=== PATIENT | male | born 1990 | race Caucasian/White ===

== ENCOUNTER 2017-11-27 03:52 | Emergency (ER) | payer OTHER ==
[~2017-11-27] VITALS: Ht 172.7 cm; Wt 95.3 kg
[2017-11-27] MEDS ORDERED: IBUPROFEN 400 MG TAB PO ONE (04:00)
[2017-11-27] MEDS ORDERED: IBUPROFEN 400 MG TAB ONE (04:02)
--- NOTE | 2017-11-27 05:44 | Diagnostic Imaging Report ---
FEMUR 2 VIEWS MINIMUM LEFT, PELVIS AP 1-2 VIEWS Comparison: None Clinical history: \S\JUMPED ONTO STRIPPER POLE, FELT POP Findings: No evidence of acute fracture or dislocation. Lucency overlying the visualized tibia on lateral view is likely projectional. Well-corticated ossific fragment is seen in the left lateral thigh soft tissues. Impression: No acute bony abnormality Signed by: Dr Eugenia Royal MD on 11/27/2017 5:41 AM
== END 2017-11-27 05:50 | disposition home or self-care (01) ==
LOC: ER 03:52
DX: M79.652 Pain in left thigh (principal); S76.112A Strain of left quadriceps muscle, fascia and tendon, initial encounter; X50.1XXA Overexertion from prolonged static or awkward postures, initial encounter; Y92.89 Other specified places as the place of occurrence of the external cause
CPT/HCPCS: 72170; 99283

== ENCOUNTER 2021-05-17 07:00 | Emergency (ER) | payer BC, OTHER ==
[~2021-05-17] VITALS: Ht 172.7 cm; Wt 95.3 kg
[2021-05-17] MEDS ORDERED: SODIUM CHLORIDE 0.9% 50ML 50 ML ONE (08:04)
[2021-05-17] MEDS ORDERED: IOPAMIDOL 370 MG/ML 200 ML INFUS..BTL INJ ONE (08:04)
[2021-05-17 08:16] LABS: BASOPHILS # (AUTO) 0.1 (0.0-0.1); EOSINOPHILS # (AUTO) 0.1 (0.0-0.4); EOSINOPHILS % 1.7 % (0.0-6.0); HEMATOCRIT 49.4 % (38.2-49.6); HEMOGLOBIN 16.6 g/dL (14.0-18.0); LYMPHOCYTES # (AUTO) 2.2 (1.0-3.2); LYMPHOCYTES % 37.3 % (18.0-39.1); MEAN CORPUSCULAR HGB CONC 33.6 g/dL (31-35); MEAN CORPUSCULAR VOLUME 95.2 fL (81-99); MONOCYTES # (AUTO) 0.5 (0.2-0.8); MONOCYTES % 8.1 % (4.4-11.3); NEUTROPHILS # (AUTO) 3.1 (2.1-6.9); NEUTROPHILS % 51.6 % (38.7-80.0); PLATELET COUNT 254 x10e3/uL (140-360); RED BLOOD COUNT 5.19 x10e6/uL (4.3-5.7); RED CELL DISTRIBUTION WIDTH 11.7 % (11.7-14.4)
[2021-05-17 08:33] LABS: AMYLASE 60 U/L (25-125); LIPASE 20 U/L (8-78)
[2021-05-17 08:34] LABS: ALBUMIN 4.3 g/dL (3.5-5.0); ALBUMIN/GLOBULIN RATIO 1.3 (0.8-2.0); CALCIUM 9.4 mg/dL (8.4-10.2); CREATININE, SERUM 1.02 mg/dL (0.72-1.25)
[2021-05-17] MEDS ORDERED: DICYCLOMINE HCL10 MG PO (09:45)
[2021-05-17] MEDS ORDERED: IBUPROFEN600 MG PO (09:45)
[2021-05-17] MEDS ORDERED: KETOROLAC TROMETHAMINE 30 MG/ML VIAL IV ONE (10:00)
== END 2021-05-17 10:03 | disposition home or self-care (01) ==
LOC: ER 07:02
DX: R10.11 Right upper quadrant pain (principal); F42.9 Obsessive-compulsive disorder, unspecified
CPT/HCPCS: 36415; 74177; 80053; 82150; 83690; 84484; 85025; 93005; 99284; J1885; Q9967

== ENCOUNTER 2024-04-14 11:46 | Emergency (ER) | payer BC ==
[~2024-04-14] VITALS: Ht 172.7 cm; Wt 99.8 kg
[~2024-04-14 11:46] MED LIST: DICYCLOMINE HCL10 MG PO; IBUPROFEN600 MG PO
[2024-04-14 12:09] VITALS: TEMP 98.7
[2024-04-14] MEDS ORDERED: IOPAMIDOL 370 MG/ML 100 ML INFUS..BTL INJ ONE (12:27)
[2024-04-14 12:30] LABS: BASOPHILS # (AUTO) 0.1 (0.0-0.1); EOSINOPHILS # (AUTO) 0.2 (0.0-0.4); EOSINOPHILS % 2.6 % (0.0-6.0); HEMATOCRIT 48.1 % (38.2-49.6); HEMOGLOBIN 16.2 g/dL (14.0-18.0); LYMPHOCYTES # (AUTO) 2.1 (1.0-3.2); LYMPHOCYTES % 33.5 % (18.0-39.1); MEAN CORPUSCULAR HEMOGLOBIN 32.8 pg (28-32); MEAN CORPUSCULAR HGB CONC 33.7 g/dL (31-35); MEAN CORPUSCULAR VOLUME 97.4 fL (81-99); MONOCYTES # (AUTO) 0.5 (0.2-0.8); MONOCYTES % 8.7 % (4.4-11.3); NEUTROPHILS # (AUTO) 3.4 (2.1-6.9); PLATELET COUNT 257 x10e3/uL (140-360); RED BLOOD COUNT 4.94 x10e6/uL (4.3-5.7); WHITE BLOOD COUNT 6.24 x10e3/uL (4.8-10.8)
[2024-04-14 12:37] LABS: BILIRUBIN,URINE NEGATIVE (NEGATIVE); CLARITY,URINE CLEAR (CLEAR); COLOR,URINE YELLOW (YELLOW); GLUCOSE, URINE NEGATIVE (NEGATIVE); KETONES,URINE NEGATIVE (NEGATIVE); LEUKOCYTE ESTERASE ,URINE NEGATIVE (NEGATIVE); NITRITE,URINE NEGATIVE (NEGATIVE); PH,URINE 6.5 (5 - 7); PROTEIN,URINE DIPSTICK NEGATIVE (NEGATIVE); URINE UROBILINOGEN 0.2 mg/dL (0.2 - 1)
[2024-04-14 12:49] LABS: BACTERIA,URINE RARE /HPF; RBC,URINE 0-5 /HPF (0-5); WBC,URINE (MAN) 0-5 /HPF (0-5)
[2024-04-14 12:51] LABS: ALBUMIN 4.3 g/dL (3.5-5.0); ALBUMIN/GLOBULIN RATIO 1.4 (0.8-2.0); ANION GAP 13.8 mmol/L (8-16); BILIRUBIN,TOTAL 0.4 mg/dL (0.2-1.2); CALCIUM 10.3 mg/dL (8.4-10.2); CREATININE, SERUM 1.2 mg/dL (0.72-1.25); POTASSIUM 3.8 mmol/L (3.5-5.1); TOTAL PROTEIN 7.4 g/dL (6.5-8.1)
[2024-04-14] MEDS: KETOROLAC TROMETHAMINE 30 MG/ML VIAL IV STA (13:05)
[2024-04-14] MEDS: SODIUM CHLORIDE 0.9% 1000ML 1,000 ML IV SCH (13:06)
[2024-04-14 13:30] VITALS: PULSE 84; RESP 14; O2SAT 96
[2024-04-14] MEDS ORDERED: DICYCLOMINE HCL20 MG PO (13:55)
== END 2024-04-14 14:20 | disposition home or self-care (01) ==
LOC: ER 11:52
DX: R10.31 Right lower quadrant pain (principal); K57.90 Diverticulosis of intestine, part unspecified, without perforation or abscess without bleeding; F42.9 Obsessive-compulsive disorder, unspecified
CPT/HCPCS: 36415; 74177; 80053; 81001; 85025; 99284; J7030; Q9967; J1885